=== PATIENT | female | born 1980 | race Caucasian/White ===

== ENCOUNTER 2018-12-21 19:48 | Emergency (ER) | payer MEDICAID ==
[~2018-12-21] VITALS: Ht 152.4 cm; Wt 76.6 kg
[2018-12-21 19:59] VITALS: Ht 152.4 cm; Wt 76.6 kg
[2018-12-22] MEDS ORDERED: CEFTRIAXONE 1 GM INJ IM ONE (00:30)
[2018-12-22] MEDS ORDERED: IBUPROFEN 600 MG TAB PO ONE (00:30)
[2018-12-22] MEDS ORDERED: SULF1TAB31 PO (01:21)
[2018-12-22] MEDS ORDERED: CEPH-443 PO (01:21)
[2018-12-22] MEDS ORDERED: IBUP-1542 PO (01:21)
[2018-12-22 01:48] VITALS: BP 126/80; PULSE 82; RESP 16
--- NOTE | 2018-12-23 22:16 | ERD ---
ER Documentation Chief Complaint Chief Complaint COUGH X'S 3 WEEKS, CWP HPI 38-year-old female patient with no significant past medical history presents to ED complaining of right breast pain that started intimately for the last 3 weeks. Patient reports that her right breast became more painful and red. Patient is a . Reports her last menstruation is on November 17, 2018. Denies breast-feeding. Denies any fever, chills, nausea, vomiting, diarrhea, neck stiffness. ROS All systems reviewed and are negative except as per history of present illness. Medications Home Meds Active Scripts Ibuprofen* (Motrin*) 600 Mg Tab, 600 MG PO Q6, #30 TAB Prov:UZIEL QUACH-C 12/22/18 Sulfamethoxazole/Trimethoprim* (Bactrim Ds* Tablet) 1 Each Tablet, 1 TAB PO BID for 7 Days, #14 TAB Prov:UZIEL QUACH-C 12/22/18 Cephalexin* (Keflex*) 500 Mg Capsule, 500 MG PO QID for 7 Days, CAP Prov:UZIEL QUACH-C 12/22/18 Allergies Allergies: Coded Allergies: No Known Allergy (Unverified , 12/21/18) PMhx/Soc Medical and Surgical Hx: pt denies Medical Hx, pt denies Surgical Hx Hx Alcohol Use: No Hx Substance Use: No Hx Tobacco Use: No Smoking Status: Never smoker FmHx Family History: coronary disease; No diabetes Physical Exam Vitals Vital Signs Date Temp Pulse Resp B/P (MAP) Pulse Ox O2 O2 Flow FiO2 Time Delivery Rate 12/22/18 82 16 126/80 99 Room Air 01:48 (95) 12/21/18 97.7 92 20 139/91 97 19:59 (107) Physical Exam Const: Kav-dwc-yuoviuysc, well-nourished. In no acute distress. Head: Atraumatic, normocephalic Eyes: Normal Conjunctiva without injection. No purulent discharge. PERRL. EOMI ENT: Normal external ear. Ear canal without erythema. Tympanic membrane pearly kaur without effusion or bulging. Nasal canal clear with normal turbinates. Moist oropharynx without tonsillar exudates. Non-erythematous pharynx. Uvula midline. No drooling. No trismus. Neck: Full range of motion. No meningismus. No cervical lymphadenopathy. Resp: Clear to auscultation bilaterally. No wheezing, rhonchi, rales, or crackles. No accessory muscle use. No retractions. Cardio: Regular rate and rhythm. No murmurs, rubs or gallops. Breasts: Erythematous inferior, medial portion of patient's right breast with firmness to palpation of the superior portion. No areolar discharge. Abd: Soft, non tender, non distended. Normal bowel sounds. No palpable masses. No rebound tenderness. No guarding. Skin: No petechiae or rashes Back: No midline tenderness. No CVA tenderness. Ext: No cyanosis, or edema. Neur: Awake and alert. Psych: Normal Mood and Affect Results 24 hrs Laboratory Tests Test 12/22/18 00:23 POC Beta HCG, Qualitative NEGATIVE Current Medications Medications Dose Sig/Debby Start Time Status Last (Trade) Ordered Route PRN Stop Time Admin Dose Reason Admin Ibuprofen 600 mg ONCE ONCE 12/22/18 DC 12/22/18 (Motrin) PO 00:30 00:15 12/22/18 00:31 Ceftriaxone 1 gm ONCE ONCE 12/22/18 DC 12/22/18 Sodium IM 00:30 00:15 (Rocephin) 12/22/18 00:31 Procedures/MDM 38-year-old female patient with no significant past medical history presents to ED complaining of right knee. Patient is afebrile and nontoxic-appearing. At this time there is no ultrasound available. Therefore patient was instructed to return to the ED in 8-12 hours for reexamination and to obtain ultrasound. Patient will be covered for a cellulitis as well as for MRSA. Keflex, Bactrim was ordered to further treat patient on outpatient basis. Urine negative. Differential diagnosis considered include but is not limited to fibroadenoma, cyst, fibrocystic changes, malignancy. Low suspicion for mastitis, deep space infection, sepsis, or other emergent conditions. Diagnosis: Breast Pain Discharge medications: Ibuprofen, Keflex, Bactrim Follow up with primary care physician in 1-2 days for all see her UNIFIED COMMUNICATIONS ARCHITECT for further care and treatment. Instructed patient to return to the ED sooner for any worsening symptoms. Patient's questions were answered. Patient is hemodynamically stable. Patient understood and agreed with discharge plan. Patient discharged stable. Disclaimer: Inadvertent spelling and grammatical errors are likely due to EHR/dictation software use and do not reflect on the overall quality of patient care. Also, please note that the electronic time recorded on this note does not necessarily reflect the actual time of the patient encounter. Departure Diagnosis: Primary Impression: Breast pain Condition: Stable Patient Instructions: Breast Mass, Uncertain Cause, Mastitis Referrals: [facility] YOU HAVE RECEIVED A MEDICAL SCREENING EXAM AND THE RESULTS INDICATE THAT YOU DO NOT HAVE A CONDITION THAT REQUIRES URGENT TREATMENT IN THE EMERGENCY DEPARTMENT. FURTHER EVALUATION AND TREATMENT OF YOUR CONDITION CAN WAIT UNTIL YOU ARE SEEN IN YOUR DOCTORS OFFICE WITHIN THE NEXT 1-2 DAYS. IT IS YOUR RESPONSIBILITY TO MAKE AN APPOINTMENT FOR FOLOW-UP CARE. IF YOU HAVE A PRIMARY DOCTOR --you should call your primary doctor and schedule an appointment IF YOU DO NOT HAVE A PRIMARY DOCTOR YOU CAN CALL OUR PHYSICIAN REFERRAL HOTLINE AT IF YOU CAN NOT AFFORD TO SEE A PHYSICIAN YOU CAN CHOSE FROM THE FOLLOWING [facility] [address] [facility]. [facility] [address] [facility]. [facility] [address] [facility] [address] [facility] [address] [facility]. [facility]. [address] [facility]. [facility] YOU HAVE RECEIVED A MEDICAL SCREENING EXAM AND THE RESULTS INDICATE THAT YOU DO NOT HAVE A CONDITION THAT REQUIRES URGENT TREATMENT IN THE EMERGENCY DEPARTMENT. FURTHER EVALUATION AND TREATMENT OF YOUR CONDITION CAN WAIT UNTIL YOU ARE SEEN IN YOUR DOCTORS OFFICE WITHIN THE NEXT 1-2 DAYS. IT IS YOUR RESPONSIBILITY TO MAKE AN APPOINTMENT FOR FOLOW-UP CARE. IF YOU HAVE A PRIMARY DOCTOR --you should call your primary doctor and schedule and appointment IF YOU DO NOT HAVE A PRIMARY DOCTOR YOU CAN CALL OUR PHYSICIAN REFERRAL HOTLINE AT . IF YOU CAN NOT AFFORD TO SEE A PHYSICIAN YOU CAN CHOSE FROM THE FOLLOWING [facility]: [facility] [address] [place] [address] [facility] [address] [place] [address] FORMERLY [facility] + [facility] [address] [place] [address] [facility]/SPECIALTIES Additional Instructions: Volver al da en 8-12 horas para un reexamen de la mama para casey ecografa ya que no tenemos ultrasonido disponible esta noche. Dgale a la secretaria que nosotros le instruimos hacer esta carla.Avise o llame si resendiz condicin se empeora antes de la carla. Regresa aqui si peor o no mejor. UZIEL QUACH PA-C Dec 23, 2018 22:16
== END 2018-12-22 01:49 | disposition home or self-care (01) ==
LOC: FTE 19:48
DX: N64.4 Mastodynia (principal)
CPT/HCPCS: 81025; J0696; Z7610; 96372

== ENCOUNTER 2018-12-22 14:58 | Emergency (ER) | payer MEDICAID ==
[~2018-12-22] VITALS: Ht 162.6 cm; Wt 77.0 kg
[~2018-12-22 14:58] MED LIST: CEPH-443 PO; IBUP-1542 PO; SULF1TAB31 PO
[2018-12-22 15:00] VITALS: BP 126/65; PULSE 90; RESP 18; Ht 162.6 cm; Wt 77.0 kg
--- NOTE | 2018-12-22 17:38 | ERD ---
ER Documentation Chief Complaint Chief Complaint RECHECK RIGHT BREAST MASS HPI This is a 38-year-old female with no stated medical problems presenting to the ED complaining of a mass in her right breast that she is noted for the past 3 weeks. Patient states pain is minimal. She denies fevers, discharge, breast-feeding. Patient was seen at this facility last night in which ultrasound was unavailable and was told to return in 8 hours to obtain an ultrasound. Patient was given prescription Keflex and Bactrim for possible infection, which patient states that she has had 1 dose. ROS All systems reviewed and are negative except as per history of present illness. Medications Home Meds Active Scripts Ibuprofen* (Motrin*) 600 Mg Tab, 600 MG PO Q6, #30 TAB Prov:UZIEL QUACH-Jasmina 12/22/18 Sulfamethoxazole/Trimethoprim* (Bactrim Ds* Tablet) 1 Each Tablet, 1 TAB PO BID for 7 Days, #14 TAB Prov:UZIEL QUACH-C 12/22/18 Cephalexin* (Keflex*) 500 Mg Capsule, 500 MG PO QID for 7 Days, CAP Prov:UZIEL QUACH-C 12/22/18 Allergies Allergies: Coded Allergies: No Known Allergy (Unverified , 12/21/18) PMhx/Soc Hx Alcohol Use: No Hx Substance Use: No Hx Tobacco Use: No Physical Exam Vitals Vital Signs Date Temp Pulse Resp B/P (MAP) Pulse Ox O2 O2 Flow FiO2 Time Delivery Rate 12/22/18 97.2 90 18 126/65 98 15:00 (85) Physical Exam Const: No acute distress Head: Atraumatic Eyes: Normal Conjunctiva ENT: Normal External Ears, Nose and Mouth. Neck: Full range of motion. No meningismus. Resp: Clear to auscultation bilaterally Cardio: Regular rate and rhythm, no murmurs Abd: Soft, non tender, non distended. Normal bowel sounds Skin: firm mass felt at 5 o'clock position, no erythema or warmth. No discharge Back: No midline or flank tenderness Ext: No cyanosis, or edema Neur: Awake and alert Psych: Normal Mood and Affect Procedures/MDM This is a 38-year-old female presenting to the ED with a breast mass that she is noted for past 3 weeks. On examination there is no erythema, there is no warmth. She is afebrile and well-appearing. I doubt abscess or mastitis at this time. Breast ultrasound was done and showed a vascular mass, I discussed this with patient and discussed with her that she is best for her to obtain mammogram and biopsy. I have instructed her to follow-up with her primary care physician or RESIDENT ASSISTANT CNA for further evaluation management. Discussed with her return to ER for any worsening symptoms patient stable to be discharged home Limited Right Breast US: Posterior to the upper and medial areola, there is a heterogeneous mass measuring 4.6 x 3.5 x 3.3 cm. There is posterior acoustic enhancement and no posterior acoustic shadowing. Color flow imaging shows no internal blood flow. Minimal blood flow is evident directly behind the nipple, adjacent to the anterior margin of the lesion. The long axis the lesion is parallel to the skin surface. At 6 o'clock there is an avascular anechoic or hypoechoic lesion measuring 11 mm in diameter parallel to the skin and 7 mm in thickness. This also shows p osterior acoustic enhancement. No other masses or cysts are evident in the right breast.. IMPRESSION: 1. Avascular 4.6 cm mass in the upper and medial retroareolar right breast. Despite the relative avascularity, the differential includes hematoma, ab scess/phlegmon, and neoplasm. Correlation with the patient's physical exam and clinical history is necessary. If questions regarding the nature of this lesion persist, ultrasound guided aspiration/biopsy would be recommended along with possible surgical consultation. Departure Diagnosis: Primary Impression: Breast mass Condition: Stable Patient Instructions: Breast Mass, Uncertain Cause Referrals: RESIDENT ASSISTANT [place] [address] [facility] [address] [place], [place] [id number] OFFICE FAX YUE W[address]ATT [address] [place], [place] [id number] [address] [place] [place] [address] [place], [place] [id number] KEISHA BEE [address] [facility], [address] [address] [address] [address] [place], [place] [id number] [facility] [place]STE[facility] [address] [place], [place] [id number] [facility] [id number] [address] HERMOSILLO, HECTOR [address], [facility] [address] [address] PRICE, KAREN [address] [facility]. [address], [facility] [address] [address] GARCIA, FARID [address] [place], [place] [id number] Additional Instructions: Visite a resendiz pancho rivasana para un EXAMEN.Regrese a estas instalaciones si no se mejora alexander esperbamos o alexander le dijimos. Regrese a estas instalaciones si no se mejora alexander esperbamos o alexander le dijimos.[place] toda la medicina marcos y alexander se le indic. BEN WALLIS PA-C Dec 22, 2018 17:38
== END 2018-12-22 17:38 | disposition home or self-care (01) ==
LOC: FTE 14:58
DX: N63.11 Unspecified lump in the right breast, upper outer quadrant (principal)
CPT/HCPCS: 76642; Z7502